=== PATIENT | female | born 1975 | race African-American/Black ===

== ENCOUNTER 2017-11-22 19:04 | Emergency (ER) | payer OTHER ==
[~2017-11-22] VITALS: Ht 177.8 cm; Wt 108.9 kg
[2017-11-22] MEDS ORDERED: NAPROSYN500 MG PO (19:41)
[2017-11-22] MEDS ORDERED: KEFLEX500 M1 PO (19:41)
[2017-11-22 19:52] VITALS: BP 147/88
== END 2017-11-22 19:52 | disposition home or self-care (01) ==
LOC: M.ERS 19:04
DX: S01.81XA Laceration without foreign body of other part of head, initial encounter (principal); S61.304A Unspecified open wound of right ring finger with damage to nail, initial encounter; S80.12XA Contusion of left lower leg, initial encounter; Z23 Encounter for immunization; X58.XXXA Exposure to other specified factors, initial encounter; Y04.2XXA Assault by strike against or bumped into by another person, initial encounter; Y93.89 Activity, other specified; Y92.098 Other place in other non-institutional residence as the place of occurrence of the external cause